=== PATIENT | male | born 1985 | race Hispanic/Latino ===

== ENCOUNTER 2019-10-09 15:56 | Emergency (ER) | payer OTHER ==
--- NOTE | 2019-10-09 16:05 | Emergency Department Report ---
Blank Doc - Documentation Documentation: 34-year-old male that presents with left nail to the scalp while at work. This initial assessment/diagnostic orders/clinical plan/treatment(s) is/are subject to change based on patient's health status, clinical progression and re- assessment by fellow clinical providers in the ED. Further treatment and workup at subsequent clinical providers discretion. Patient/guardians urged not to elope from the ED as their condition may be serious if not clinically assessed and managed. Initial orders include: 1- Patient sent to [facility] for further evaluation and treatment 2- Ct head
--- NOTE | 2019-10-09 17:08 | Cat Scan Report ---
CT head/brain wo con INDICATION / CLINICAL INFORMATION: 34 years Male; nail to left scalp area. TECHNIQUE: Routine CT head without contrast. All CT scans at this location are performed using CT dos e reduction for ALARA by means of automated exposure control. There is streak artifact from a nail th at is seen along the leftward aspect of the calvarium. COMPARISON: None. FINDINGS: BRAIN / INTRACRANIAL CONTENTS: Small lacunar infarct versus perivascular space seen in the inferior g angliocapsular region on the left. Choroidal fissure cyst might be a consideration as well. Otherwise, no acute hemorrhage, mass effect, midline shift, hydrocephalus, or acute, large territori al infarct. No chronic infarct or atrophy appreciated. No significant white matter abnormality. CRANIOCERVICAL JUNCTION: No significant abnormality. ORBITS: No significant abnormality of visualized orbits. SINUSES / MASTOIDS: No significant abnormality the visualized paranasal sinuses or mastoid air cells. ADDITIONAL FINDINGS: A nail is seen in the subcutaneous soft tissues along the leftward aspect of the calvarium. No signs of underlying calvarial injury appreciated. IMPRESSION: 1. No focal intra-axial mass, intracranial hemorrhage, hydrocephalus, or acute, large territorial inf arct. Signer Name: Berto Sneed MD, III Signed: 10/09/2019 5:04 PM Workstation Name: [id number]
--- NOTE | 2019-10-09 17:56 | Emergency Department Report ---
- General Chief complaint: Medical Clearance Stated complaint: LFT SIDE NAIL IN HEAD Time Seen by Provider: 10/09/19 16:04 Source: patient Mode of arrival: Ambulatory Limitations: No Limitations - History of Present Illness Initial comments: 34-year-old male presents to the emergency room for nail to the left temporal area times this afternoon while at work. Patient states that a person with hammering a nail and temporal area in the subcutaneous. Patient denies any weakness or neurological deficits. Patient denies any pain. MD complaint: foreign body -: This afternoon Tetanus Up to Date: yes Location: head Severity scale (0 -10): 0 Associated symptoms: denies other symptoms Treatments Prior to Arrival: none - Related Data Previous Rx's Medication Instructions Recorded Last Taken Type HYDROcodone/APAP 10-325 [[place] 1 each PO Q4-6H PRN #16 tablet 03/23/15 Unknown Rx 10/325] Ondansetron [Zofran Odt] 4 mg SL Q6H PRN #8 tab.rapdis 03/23/15 Unknown Rx Allergies Allergy/AdvReac Type Severity Reaction Status Date / Time No Known Allergies Allergy Verified 03/23/15 04:[address] [facility] Chief Complaint: Medical Clearance Stated Complaint: LFT SIDE NAIL IN HEAD Time Seen by Provider: 10/09/19 16:04 Home Medications: Previous Rx's Medication Instructions Recorded Last Taken Type HYDROcodone/APAP 10-325 [[place] 1 each PO Q4-6H PRN #16 tablet 03/23/15 Unknown Rx 10/325] Ondansetron [Zofran Odt] 4 mg SL Q6H PRN #8 tab.rapdis 03/23/15 Unknown Rx Allergies/Adverse Reactions: Allergies Allergy/AdvReac Type Severity Reaction Status Date / Time No Known Allergies Allergy Verified 03/23/15 04:01 ED Review of Systems ROS: Stated complaint: LFT SIDE NAIL IN HEAD Other details as noted in HPI ED Past Medical Hx - Past Medical History Previous Medical History?: No - Surgical History Past Surgical History?: No - Social History Smoking Status: Never Smoker Substance Use Type: None - Medications Home Medications: Home Medications Medication Instructions Recorded Confirmed Last Taken Type HYDROcodone/APAP 10-325 [[place] 1 each PO Q4-6H PRN #16 tablet 03/23/15 Unknown Rx 10/325] Ondansetron [Zofran Odt] 4 mg SL Q6H PRN #8 tab.rapdis 03/23/15 Unknown Rx ED Physical Exam - General Limitations: No Limitations General appearance: alert, in no apparent distress - Head Head exam: Present: other (left lateral scalp 8 cm nail protruding from the scalp no active bleeding no tenderness to palpate no swelling no ecchymosis) - ENT ENT exam: Present: mucous membranes moist - Expanded Neurological Exam Expanded Patient oriented to: Present: person, place, time Cranial nerves: EOM's Intact: Normal, Gag Reflex: Normal, Tongue Deviation: Normal, Nystagmus: Normal, Facial Sensation: Normal, Facial Palsy with Forehead Movement: Normal, Facial Palsy without Forehead Movement: Normal Cerebellar function: Finger to Nose: Normal, Heel to Mendoza: Normal, Romberg: Normal Upper motor neuron: Kurt Neglect: Normal, Pronator Drift: Normal, Sensory Extinction: Normal Sensory exam: Upper Extremity Light Touch: Normal, Upper Extremity Pin Prick: Normal, Upper Extremity Temperature: Normal, UE 2 Point Discrimination: Normal, Lower Extremity Light Touch: Normal, Lower Extremity Pin Prick: Normal, Lower Extremity Temperature: Normal, LE 2 Point Discrimination: Normal Motor strength exam: RUE: 4, LUE: 4, RLE: 4, LLE: 4 Best Eye Response (Zefreino): (4) open spontaneously Best Motor Response (Zeferino): (6) obeys commands Best Verbal Response (Gove): (5) oriented Zeferino Total: 15 - Psychiatric Psychiatric exam: Present: normal affect, normal mood - Skin Skin exam: Present: warm, dry, intact, normal color. Absent: rash ED Course Vital Signs 10/09/19 16:04 Temperature 98 F Pulse Rate 82 Respiratory 16 Rate Blood Pressure 151/88 O2 Sat by Pulse 100 Oximetry ED Medical Decision Making - Radiology Data Radiology results: report reviewed Patient: JEFFERY ERAZO MR#: [id number] : 1985 Acct:[id number] Age/Sex: 34 / M ADM Date: 10/09/19 Loc: ED Attending Dr: Ordering Physician: ALLAN RIVERS NP Date of Service: 10/09/19 Procedure(s): CT head/brain wo con Accession Number(s): [id number] cc: ALLAN RIVERS NP CT head/brain wo con INDICATION / CLINICAL INFORMATION: 34 years Male; nail to left scalp area. TECHNIQUE: Routine CT head without contrast. All CT scans at this location are performed using CT dose reduction for ALARA by means of automated exposure control. There is streak artifact from a nail that is seen along the leftward aspect of the calvarium. COMPARISON: None. FINDINGS: BRAIN / INTRACRANIAL CONTENTS: Small lacunar infarct versus perivascular space seen in the inferior gangliocapsular region on the left. Choroidal fissure cyst might be a c onsideration as well. Otherwise, no acute hemorrhage, mass effect, midline shift, hydrocephalus, or acute, large territorial infarct. No chronic infarct or atrophy appreciated. No significant white matter abnor mality. CRANIOCERVICAL JUNCTION: No significant abnormality. ORBITS: No significant abnormality of visualized orbits. SINUSES / MASTOIDS: No significant abnormality the visualized paranasal sinuses or mastoid air cells. ADDITIONAL FINDINGS: A nail is seen in the subcutaneous soft tissues along the leftward aspect of the calvarium. No signs of underlying calvarial injury appreciated. IMPRESSION: 1. No focal intra-axial mass, intracranial hemorrhage, hydrocephalus, or acute, large territorial infarct. Signer Name: Berto Sneed MD, III Signed: 10/09/2019 5:04 PM Workstation Name: [id number] Transcribed By: HR Dictated By: Berto Sneed MD Electronically Authenticated By: Berto Sneed MD Signed Date/Time: 10/09/191703 DD/ 58 TD/TT: - Medical Decision Making 34-year-old male presents to the emergency room for nail to the left temporal area times this afternoon while at work. Patient states that a person with hammering a nail and temporal area in the subcutaneous. Patient denies any weakness or neurological deficits. Patient denies any pain. CT negative for any intercranial incident. Nail is in the subcutaneous tissue. Critical care attestation.: If time is entered above; I have spent that time in minutes in the direct care of this critically ill patient, excluding procedure time. ED Disposition Clinical Impression: Foreign body of scalp Disposition: DC-01 TO HOME OR SELFCARE Is pt being admited?: No Does the pt Need Aspirin: No Condition: Stable Additional Instructions: CT shows nail is in the subcutaneous scalp. You can take Tylenol or ibuprofen as needed for any discomfort. Return back to the emergency room with this any acute changes. Referrals: Your,Provider [Other] - 3-5 Days Forms: Work/School Release Form(ED)
[2019-10-09] MEDS ORDERED: IBUPROFEN 800 MG TAB PO ONE (18:10)
[2019-10-09] MEDS ORDERED: IBUPROFEN 800 MG TAB ONE (18:12)
[2019-10-09 18:44] VITALS: BP 150/80
== END 2019-10-09 18:29 | disposition home or self-care (01) ==
LOC: ED 15:56
DX: S00.05XA Superficial foreign body of scalp, initial encounter (principal); X58.XXXA Exposure to other specified factors, initial encounter; Y93.89 Activity, other specified; Y92.89 Other specified places as the place of occurrence of the external cause; Y99.8 Other external cause status
CPT/HCPCS: 70450